=== PATIENT | male | born 1975 | race Two or more races ===

== ENCOUNTER 2019-07-27 12:01 | Emergency (ER) | payer MEDICAID, OTHER ==
[~2019-07-27] VITALS: Ht 188 cm; Wt 123.8 kg
[2019-07-27] MEDS ORDERED: cloNIDine HCL 0.1 MG TAB PO ONE (12:30)
[2019-07-27] MEDS ORDERED: cloNIDine HCL 0.1 MG TAB ONE (12:31)
[2019-07-27] MEDS ORDERED: KETOROLAC TROMETH 60MG/2ML VIAL IM ONE (13:45)
[2019-07-27 14:29] VITALS: BP 160/92
== END 2019-07-27 14:33 | disposition home or self-care (01) ==
LOC: ER 12:01
DX: S16.1XXA Strain of muscle, fascia and tendon at neck level, initial encounter (principal); M54.6 Pain in thoracic spine; I10 Essential (primary) hypertension; X58.XXXA Exposure to other specified factors, initial encounter; Y93.89 Activity, other specified; Y92.89 Other specified places as the place of occurrence of the external cause; Y99.8 Other external cause status
CPT/HCPCS: 72040; 96372; 99283; J1885

== ENCOUNTER 2020-07-21 16:03 | Emergency (ER) | payer SELFPAY ==
[~2020-07-21] VITALS: Ht 188 cm; Wt 121.1 kg
[2020-07-21] MEDS ORDERED: KETOROLAC TROMETH 60MG/2ML VIAL IM ONE (17:30)
[2020-07-21] MEDS ORDERED: cefTRIAXone SOD 1,000 MG VL IM ONE (17:30)
[2020-07-21 18:10] VITALS: BP 159/96
== END 2020-07-21 18:14 | disposition home or self-care (01) ==
LOC: ER 16:03
DX: K02.9 Dental caries, unspecified (principal); I10 Essential (primary) hypertension
CPT/HCPCS: 96372; 99284; J0696; J1885